=== PATIENT | male | born 1960 | race Caucasian/White ===

== ENCOUNTER 2021-02-16 21:06 | Emergency (ER) | payer SELFPAY ==
--- NOTE | ~2021-02-16 | XR_ITS ---
EXAMINATION: XR chest 1V portable EXAM DATE: 02/17/2021 01:44 INDICATION: SOB, Congestion, No Cardiac HX TECHNIQUE: Portable AP frontal chest x-ray was obtained. Comparison is made to prior examination from 02/22/2016. FINDINGS: The lungs are clear. There are no pleural effusions. The cardiomediastinal silhouette is within normal limits. There is no pneumothorax suspected. The bones and soft tissues are unremarkab le. IMPRESSION: No acute cardiopulmonary findings. Reviewed, dictated and finalized at location A.
--- NOTE | ~2021-02-16 | CT_ITS ---
EXAMINATION: CT soft tissue neck w con EXAM DATE: 02/17/2021 01:30 INDICATION: Left neck pain TECHNIQUE: Spiral CT of the neck was performed following intravenous injection of 75 mL Omnipaque 350 . Axial, coronal and sagittal images were reviewed. The dose-length product (DLP) for this examinat ion was 579.69 mGy-cm. The exposure was tailored according to patient size (auto mA exposure control ), and iterative reconstruction (ASIR) was used as additional dose reduction technique. There is no prior study for comparison. 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 The re is left tonsil is larger than right, could indicate mild edema. No drainable abscess. Epiglottis i s normal in thickness as are the aryepiglottic folds. The thyroid gland is unremarkable. The subma ndibular and parotid glands are symmetric. There is no cervical lymphadenopathy. There are no mass es identified. The superior mediastinum is unremarkable. Parapharyngeal and pre-glottic fat plan es are preserved. The opacified vasculature is patent. The orbits are unremarkable. Visualized sinuses and mastoid air cells are well aerated. Lung apices are clear. There is mild to moderate c ervical spondylosis. IMPRESSION: Nasopharyngeal and left tonsillar edema without drainable abscess. Consider pharyngitis, tonsillitis. Reviewed, dictated and finalized at location A.
[2021-02-16 21:12] VITALS: BP 130/75; PULSE 68; RESP 18; TEMP 36.7; O2SAT 98
[2021-02-16 22:30] VITALS: BP 130/73; PULSE 69; RESP 16; O2SAT 96
[2021-02-16 22:35] VITALS: O2SAT 98
[2021-02-17 00:11] VITALS: BP 135/88; PULSE 60; RESP 16; O2SAT 96
--- NOTE | 2021-02-17 00:33 | ED.GENADULT ---
HPI - General Adult General Chief complaint: Upper Respiratory Infection <Carol Zaragoza MD - Last Filed: 02/22/21 17:01> Stated complaint: congestion <Carol Zaragoza MD - Last Filed: 02/22/21 17:01> Time Seen by Provider: 02/16/21 23:39 <Carol Zaragoza MD - Last Filed: 02/22/21 17:01> Source: patient and RN notes reviewed <Carol Zaragoza MD - Last Filed: 02/22/21 17:01> History of Present Illness HPI narrative: Patient is 60 y/o male complaining of cough and congestion for about 1 week. He states that he is coughing up some white and yellow phlegm. There is no known alleviating or exacerbating factor. He has no fever. He noticed some left neck pain and swelling a few days ago. <Carol Zaragoza MD - Last Filed: 02/22/21 17:01> Related Data Allergies/adverse reactions: Allergies Allergy/AdvReac Type Severity Reaction Status Date / Time No Known Allergies Allergy Verified 02/16/21 22:34 <Carol Zaragoza MD - Last Filed: 02/22/21 17:01> Review of Systems Constitutional: Constitutional: Denies chills, Denies fever(s), Denies headache(s) and Denies weakness <Carol Zaragoza MD - Last Filed: 02/22/21 17:01> Eyes: Eyes: Denies blurry vision <Carol Zaragoza MD - Last Filed: 02/22/21 17:01> ENT: Denies headache(s) and Reports neck pain (left neck pain) <Carol Zaragoza MD - Last Filed: 02/22/21 17:01> Cardiovascular: Cardiovascular: Denies chest pain and Denies dyspnea <Carol Zaragoza MD - Last Filed: 02/22/21 17:01> Respiratory: Respiratory: Reports cough and Denies dyspnea <Carol Zaragoza MD - Last Filed: 02/22/21 17:01> Gastrointestinal: Gastrointestinal: Denies abdominal pain, Reports diarrhea, Denies nausea and Denies vomiting <Carol Zaragoza MD - Last Filed: 02/22/21 17:01> Genitourinary: Genitourinary: Denies hematuria and Denies dysuria <Carol Zaragoza MD - Last Filed: 02/22/21 17:01> Musculoskeletal: Musculoskeletal: Denies back pain and Denies neck pain <Carol Zaragoza MD - Last Filed: 02/22/21 17:01> Neurologic: Denies headache(s) and Denies weakness <Carol Zaragoza MD - Last Filed: 02/22/21 17:01> Exam Const: General: no acute distress and well developed <Carol Zaragoza MD - Last Filed: 02/22/21 17:01> Orientation/consciousness: oriented to person, oriented to place, oriented to time and patient oriented x3 <Carol Zaragoza MD - Last Filed: 02/22/21 17:01> HENMT: Head: normocephalic <Carol Zaragoza MD - Last Filed: 02/22/21 17:01> Ears: external ears normal <Carol Zaragoza MD - Last Filed: 02/22/21 17:01> General nose exam: Normal external nose present <Carol Zaragoza MD - Last Filed: 02/22/21 17:01> Eyes: General: appearance normal, both eyes and all related structures <Carol Zaragoza MD - Last Filed: 02/22/21 17:01> Conjunctivae: conjunctivae normal <Carol Zaragoza MD - Last Filed: 02/22/21 17:01> Neck: Neck: normal visual inspection and full ROM <Carol Zaragoza MD - Last Filed: 02/22/21 17:01> Chest: Chest palpation & inspection: normal inspection of the chest and no tenderness <Carol Zaragoza MD - Last Filed: 02/22/21 17:01> Resp: Effort & Inspection: normal respiratory effort <Carol Zaragoza MD - Last Filed: 02/22/21 17:01> Auscultation: clear to auscultation bilaterally <Carol Zaragoza MD - Last Filed: 02/22/21 17:01> Cardio: Rate: regular rate <Carol Zaragoza MD - Last Filed: 02/22/21 17:01> Rhythm: regular rhythm <Carol Zaragoza MD - Last Filed: 02/22/21 17:01> GI: GI Palp: No abdominal tenderness and Yes Soft to palpation <Carol Zaragoza MD - Last Filed: 02/22/21 17:01> Skin: General skin exam: normal color and turgor normal <Carol Zaragoza MD - Last Filed: 02/22/21 17:01> Neuro: General: oriented to person, oriented to place, oriented to time and patient oriented x3 <Carol Zaragoza MD - Last Filed: 02/22/21 17:01> Cognition (Neuro): normal cognition <Carol Zaragoza MD - Last Filed: 02/22/21 17:01> Extrem: General: normal to in
[2021-02-17 00:36] LABS: Basophils Absolute Auto 0.1 K/mm3 (0.0-0.1); Basophils Percent Auto 0.7 % (0.2-1.2); Eosinophils Absolute Auto 0.2 K/mm3 (0-0.3); Eosinophils Percent Auto 1.8 % (0-4.4); Hematocrit 47.5 % (42.0-52.0); Hemoglobin 16.2 g/dL (14.0-18.0); Immature Granulocyte Absolute 0.04 K/mm3 (0.00-0.031); Immature Granulocyte Percent A 0.4 % (0-0.5); Lymphocytes Absolute Auto 1.81 K/mm3 (0.9-3.2); Lymphocytes Percent Auto 17.7 % (18.3-44.2); Mean Corpuscular HGB Conc 34.1 g/dl (32-36); Mean Corpuscular Hemoglobin 32.5 pg (26-34); Mean Corpuscular Volume 95.2 fl (80-100); Mean Platelet Volume 10.9 fl (7.4-10.4); Monocytes Absolute Auto 0.8 K/mm3 (0.1-0.6); Monocytes Percent Auto 8.1 % (2.6-8.5); Neutrophils Absolute Auto 7.3 K/mm3 (1.3-6.7); Neutrophils Percent Auto 71.3 % (45.5-73.1); Platelet Count Result 247 k/mm3 (150-375); Red Blood Count 4.99 M/mm3 (4.6-6.20); Red Cell Distribution Width 12.4 % (11.5-14.5); White Blood Count 10.2 K/mm3 (4.5-10.0)
[2021-02-17 00:55] LABS: Anion Gap 6 mmol/L (8-16); Blood Urea Nitrogen 16 mg/dL (9-20); Calcium 9.9 mg/dL (8.4-10.2); Carbon Dioxide 31 mmol/L (22-30); Chloride 101 mmol/L (98-107); Estimated CRCL calculation 84 ml/min; Estimated Glomerular Filt Rate > 60; Glucose 116 mg/dL (65-110); Potassium 4.6 mmol/L (3.4-5.0); Sodium 138 mmol/L (137-145)
--- NOTE | 2021-02-17 01:20 | PC.NURSE ---
Pt to CT via stretcher.
[2021-02-17 02:03] VITALS: BP 140/87; PULSE 61; RESP 16; O2SAT 97
[2021-02-17] MEDS: ACETAMINOPHEN 500 MG TABLET 1000 MG PO (03:36)
[2021-02-17] MEDS: AMOXICILLIN/CLAVULANATE K 875-125 MG TAB 1 TABLET PO (03:36)
[2021-02-17 03:38] VITALS: BP 125/83; PULSE 66; RESP 16; O2SAT 95
[2021-02-17] MEDS: BENZONATATE 100 MG CAPSULE 200 MG PO (04:06)
[2021-02-17 19:23] LABS: SARS-CoV-2 RNA PCR Negative
== END 2021-02-17 04:16 | disposition home or self-care (01) ==
PROVIDERS: Emergency Provider Emergency Medicine
DX: J02.9 Acute pharyngitis, unspecified (principal); Z20.822 Contact with and (suspected) exposure to COVID-19
CPT/HCPCS: 36415; 70491; 71045; 80048; 85025; 87081; 87880; 99284; A9270; C9803; Q9967; U0003; U0005